=== PATIENT | male | born 1950 ===

== ENCOUNTER 2017-10-06 02:48 | Outpatient (CLI) | payer MEDICARE | END 2017-10-06 23:59 | disposition home or self-care (01) | LOC: DIABETIC 02:48 | PROVIDERS: ATTEND Family Medicine | DX: E11.9 Type 2 diabetes mellitus without complications (principal); E78.5 Hyperlipidemia, unspecified; I10 Essential (primary) hypertension | CPT/HCPCS: G0108 ==

== ENCOUNTER 2018-04-06 03:39 | Outpatient (CLI) | payer MEDICARE | END 2018-04-06 23:59 | disposition home or self-care (01) | LOC: DIABETIC 03:39 | PROVIDERS: ATTEND Family Medicine | DX: E11.8 Type 2 diabetes mellitus with unspecified complications (principal); E78.5 Hyperlipidemia, unspecified; I10 Essential (primary) hypertension | CPT/HCPCS: G0108 ==